=== PATIENT | male | born 1970 | race Caucasian/White ===

== ENCOUNTER → 2018-08-22 16:24 | Outpatient (CLI) | payer OTHER, SELFPAY ==
--- NOTE | 2018-08-22 16:28 | DI.US.S_ITS ---
PROCEDURE: US SCROTUM INDICATIONS: Testicular pain TECHNIQUE: Real-time scanning was performed of the scrotum and testicles, with image documentation. Color and pulse Doppler interrogation was performed of both testicles. COMPARISON: None. FINDINGS: Right: Testicle is normal in size at 4.1 x 2.5 x 2.1 cm, and homogenous in echotexture. Epididymis is normal in overall size and morphology. There is a small right-sided hydrocele No varicoceles. Overlying scrotal skin is normal in thickness. Left: Testicle is normal in size at 3.9 x 2.8 x 1.9 cm. There is a 2.4 mm cyst involving the left testicle. Epididymis is normal in overall size. There are several left epididymal head cysts, with the largest measuring 1.1 cm. No varicoceles. There is a small left-sided hydrocele. Overlying scrotal skin is normal in thickness. Doppler: Color and pulse Doppler demonstrate normal and symmetric arterial flow in both testicles. IMPRESSION: The abnormal fullness on the left corresponds to multiple epididymal head cysts, which are considered to be benign. There is a 2.4 mm left testicular cyst, which is considered to be benign. No intratesticular masses are seen. Dictated by: Pilo Johansen M.D. on 08/22/2018 at 17:25 Approved by: Pilo Johansen M.D. on 08/22/2018 at 17:27
== END ==
PROVIDERS: Family Provider Internal Medicine; PCP Internal Medicine; Visit Provider Internal Medicine
DX: N50.819 Testicular pain, unspecified (principal); N50.3 Cyst of epididymis; N44.2 Benign cyst of testis
CPT/HCPCS: 76870

== ENCOUNTER → 2020-09-25 11:40 | Outpatient (CLI) | payer OTHER, SELFPAY ==
[2020-09-25 13:11] LABS: Alanine Aminotransferase 22 IU/L (<50); Albumin 4.5 g/dL (3.5-5.0); Albumin Globulin Ratio 1.7 (1.0-2.8); Alkaline Phosphatase 45 U/L (38-126); Aspartate Aminotransferase 22 IU/L (17-59); BUN Creatinine Ratio 18.1 (6-22); Bilirubin Total 0.6 mg/dL (0.2-1.3); Blood Urea Nitrogen 17 mg/dL (9-20); Calcium 9.5 mg/dL (8.4-10.2); Carbon Dioxide 32 mmol/L (22-32); Chloride 103 mmol/L (98-107); Estimated Glomerular Filt Rate > 60.0 mL/min (>60); Globulin 2.6 g/dL (1.7-4.1); Glucose 104 mg/dL (70-100); HEMOLYSIS < 15 (0-50); Sodium 139 mmol/L (137-145); Total Protein 7.1 g/dL (6.3-8.2)
== END ==
PROVIDERS: Family Provider Internal Medicine; PCP Internal Medicine; Referring Provider Internal Medicine Cardiovascular Disease; Visit Provider Internal Medicine Cardiovascular Disease
DX: Z51.81 Encounter for therapeutic drug level monitoring (principal); Z79.899 Other long term (current) drug therapy
CPT/HCPCS: 36415; 80053